=== PATIENT | female | born 1955 | race Caucasian/White ===

== ENCOUNTER 2023-05-01 13:47 | Emergency (ER) | payer MEDICAID ==
[~2023-05-01] VITALS: Ht 160 cm; Wt 71.7 kg
[2023-05-01 14:00] VITALS: BP 140/70; TEMP 98.8; O2SAT 97
[2023-05-01 14:40] LABS: BASOPHILS % (AUTO) 0.4 % (0.0-2.0); EOSINOPHILS % (AUTO) 0.3 % (0.0-6.0); HEMATOCRIT 43 % (33-45); HEMOGLOBIN 14.2 g/dL (11.5-14.8); LYMPHOCYTES # (AUTO) 1.2 K/uL (0.8-4.8); LYMPHOCYTES % (AUTO) 10.6 % (20.0-44.0); MEAN CORPUSCULAR HEMOGLOBIN 29 PG (26.0-33.0); MEAN CORPUSCULAR HGB CONC 34 g/dl (31.0-36.0); MEAN CORPUSCULAR VOLUME 87 fL (82-100); MONOCYTES # (AUTO) 0.9 K/uL (0.1-1.30); MONOCYTES % (AUTO) 8.1 % (2.0-12.0); NEUTROPHILS # (AUTO) 9.1 K/uL (1.8-8.9); NEUTROPHILS % (AUTO) 80.6 % (43.0-81.0); PLATELET COUNT (AUTO) 199 K/uL (150-450); WHITE BLOOD COUNT (AUTO) 11.3 K/uL (4.3-11.0)
[2023-05-01 15:02] LABS: CALCIUM, SERUM 9.2 mg/dL (8.5-10.1); CARBON DIOXIDE 24 mmol/L (21-32); CHLORIDE 100 mmol/L (98-107); CREATININE 0.9 mg/dL (0.6-1.3); GLUCOSE 213 mg/dL (74-106); POTASSIUM 3.7 mmol/L (3.5-5.1); SODIUM SERUM 136 mmol/L (136-145); UREA NITROGEN, BLOOD 14 mg/dL (7-18)
[2023-05-01 15:08] LABS: ALANINE AMINOTRANSFERASE 23 U/L (12-78); ALBUMIN 3.7 g/dL (3.4-5.0); ALKALINE PHOSPHATASE 65 U/L (46-116); ASPARTATE AMINOTRANSFERASE 12 U/L (15-37); BILIRUBIN,DIRECT 0.1 mg/dL (0.0-0.2); BILIRUBIN,TOTAL 0.4 mg/dL (0.2-1.0); TOTAL PROTEIN, SERUM 7.3 g/dL (6.4-8.2)
[2023-05-01 15:39] LABS: LACTIC ACID 2.2 mmol/L (0.4-2.0)
[2023-05-01] MEDS ORDERED: LEVO25TA7 PO (15:42)
[2023-05-01] MEDS ORDERED: LISI-768 PO (15:42)
[2023-05-01] MEDS ORDERED: ATOR20TA PO (15:42)
[2023-05-01] MEDS ORDERED: METO25TA4 PO (15:42)
[2023-05-01] MEDS ORDERED: BLOO-668 IN (15:42)
[2023-05-01] MEDS ORDERED: METF-440 PO (15:42)
[2023-05-01] MEDS ORDERED: ERGO500093 PO (15:42)
[2023-05-01] MEDS ORDERED: GLIM2TAB31 PO (15:42)
[2023-05-01] MEDS ORDERED: ASPI-1420 PO (15:42)
[2023-05-01] MEDS ORDERED: GLYB2.5T4 PO (15:42)
== END 2023-05-01 16:00 | disposition left against medical advice (07) ==
LOC: ER 14:03
DX: E11.65 Type 2 diabetes mellitus with hyperglycemia (principal); R07.89 Other chest pain; E87.20 Acidosis, unspecified; I10 Essential (primary) hypertension; Z79.899 Other long term (current) drug therapy; Z79.82 Long term (current) use of aspirin
CPT/HCPCS: 36415; 71045-TC; 80048-TC; 80076-TC; 83605-TC; 84484-TC; 85025-TC